=== PATIENT | male | born 1995 | race Two or more races ===

== ENCOUNTER 2021-08-16 22:49 | Inpatient (IN) | payer MEDICAID ==
[~2021-08-16] VITALS: Ht 160 cm; Wt 88.9 kg
[2021-08-16] MEDS ORDERED: PANTOPRAZOLE 40 MG VIAL IV ONE (23:30)
[2021-08-16] MEDS ORDERED: IV NS 0.9% 1,000 ML BAG IV ONE (23:30)
[2021-08-16] MEDS ORDERED: ONDANSETRON HCL/PF 4 MG/2 ML VIAL IVP ONE (23:30)
[2021-08-16] MEDS ORDERED: PANTOPRAZOLE 40 MG VIAL ONE (23:34)
[2021-08-16] MEDS ORDERED: ONDANSETRON HCL/PF 4 MG/2 ML VIAL ONE (23:34)
[2021-08-16 23:54] LABS: BASOPHILS % (AUTO) 0.2 % (0.0-2.0); HEMATOCRIT 44 % (39-51); HEMOGLOBIN 14.6 g/dL (13.5-17.5); LYMPHOCYTES # (AUTO) 0.4 K/uL (0.8-4.8); LYMPHOCYTES % (AUTO) 2.8 % (20.0-44.0); MEAN CORPUSCULAR HGB CONC 33 g/dl (31.0-36.0); MEAN CORPUSCULAR VOLUME 81 fL (80-96); MONOCYTES # (AUTO) 0.5 K/uL (0.1-1.30); MONOCYTES % (AUTO) 3.1 % (2.0-12.0); NEUTROPHILS # (AUTO) 13.9 K/uL (1.8-8.9); NEUTROPHILS % (AUTO) 93.9 % (43.0-81.0); PLATELET COUNT (AUTO) 353 K/uL (150-450); RED BLOOD CELL COUNT(AUTO) 5.41 MIL/uL (4.5-6.0); WHITE BLOOD COUNT (AUTO) 14.8 K/uL (4.3-11.0)
[2021-08-17] VITALS (7 sets, daily range): BP systolic 123–142; BP diastolic 75–86
[2021-08-17 00:20] LABS: ALBUMIN 4.6 g/dL (3.4-5.0); BILIRUBIN,DIRECT 0.3 mg/dL (0.0-0.2); CREATININE 0.9 mg/dL (0.6-1.3); POTASSIUM 3.7 mmol/L (3.5-5.1); TOTAL PROTEIN, SERUM 8.5 g/dL (6.4-8.2)
[2021-08-17] MEDS ORDERED: MAG HYDROX/AL HYDROX/SIMETH 30 ML UDC ONE (00:57)
[2021-08-17] MEDS ORDERED: DICYCLOMINE HCL 10 MG/5 ML UDC ONE (00:57)
[2021-08-17] MEDS ORDERED: LIDOCAINE VISCOUS 2% UD 15 ML UDC ONE (00:58)
[2021-08-17] MEDS ORDERED: LIDOCAINE VISCOUS 2% UD 15 ML UDC MM ONE (01:00)
[2021-08-17] MEDS ORDERED: DICYCLOMINE HCL 10 MG/5 ML UDC PO ONE (01:00)
[2021-08-17] MEDS ORDERED: MAG HYDROX/AL HYDROX/SIMETH 30 ML UDC PO ONE (01:00)
[2021-08-17] MEDS ORDERED: HYDROMORPHONE INJ 2 MG/ML DISP.SYRIN IV ONE (01:30)
[2021-08-17] MEDS ORDERED: HYDROMORPHONE 1 MG/1 ML DISP.SYRIN ONE (01:33)
[2021-08-17] MEDS ORDERED: IOHEXOL-300 100 ML VIAL IV ONE (01:46)
[2021-08-17] MEDS ORDERED: IV NS 0.9% 250 ML IV ONE (01:46)
[2021-08-17] MEDS ORDERED: ONDANSETRON HCL/PF 4 MG/2 ML VIAL IVP PRN (03:30)
[2021-08-17] MEDS ORDERED: ACETAMINOPHEN 325 MG TABLET PO PRN (03:30)
--- NOTE | 2021-08-17 04:32 | NUR ---
MS 207
[2021-08-17] MEDS ORDERED: ZOSYN IVPB 3.375 G in IV D5W 50ml IV ONE (05:00)
--- NOTE | 2021-08-17 05:12 | NUR ---
REPORT GIVEN TO KEANU BETHJERMAINE
--- NOTE | 2021-08-17 05:13 | NUR ---
TRANSFERRING PT TO 207
--- NOTE | 2021-08-17 05:15 | NUR ---
MS PRIMING POWDER PREMIX BLENDER NOTES RECEIVED NEW ADMIT FROM ER THIS 25 Y.O. MALE,,ALERT,ORIENTED X4,AMBULATORY WITH PRESENTING PROBLEM OF EPIGASTRIC PAIN SINCE 2 PM YESTERDAY,DIAGNOSIS OF ACUTE APPENDICITIS,TENDER ABDOMEN VERBALIZED BY PATIENT.WITH SALINE LOCK RIGHT ACD INTACT AND PATENT.CALL LIGHT IN REACH,NEEDS ANTICIPATED.
[2021-08-17] MEDS: IV NS 0.9% 1,000 ML IV PRN ×2 (05:30→18:31)
--- NOTE | 2021-08-17 05:30 | NUR ---
MS RN NOTES STARTED ON NS 1LITER AT 75ML/HR RATE ORDERED,INFUSING VIA IV PUMP
[2021-08-17] MEDS ORDERED: PIPERACILLIN /TAZOBACTAM 3.375 G VIAL IV ONE (05:31)
--- NOTE | 2021-08-17 05:32 | NUR ---
MS RN NOTES STARTED ON ZOSYN 3.375GM IVPB ONE TIME ORDER.
--- NOTE | 2021-08-17 06:38 | NUR ---
MS RN NOTES KEPT NPO ORDERED,DROPLET ISOLATION PRECUTION FOR POSITIVE PCR RESULT.WILL ENDORSE TO DAY NURSE FOR CARYN
--- NOTE | 2021-08-17 07:30 | NUR ---
MS RN OPENING NOTES RECEIVED PATIENT ON BED AWAKE AND A/O X4. ON ROOM AIR TOLERATING WELL. NO SOB NOTED. NOT IN DISTRESS. WITH NO COMPLAINTS OF PAIN OR DISCOMFORT AT THIS TIME. WITH IV ACCESS AT RIGHT AC G18 WITH IVF NS AT 75ML/HR INFUSING WELL. SAFETY MEASURES IN PLACED. CALL LIGHT WITHIN REACH. BED ON LOWEST LOCKED POSITION, SIDE RAILS UP X2. WILL CONTINUE TO MONITOR.
[2021-08-17] MEDS ORDERED: FENTANYL PF 100MCG/2ML AMPUL ONE (12:02)
[2021-08-17] MEDS ORDERED: DEXAMETHASONE SOD PHOSPHATE 4 MG/ML VIAL ONE (12:03)
[2021-08-17] MEDS ORDERED: MIDAZOLAM HCL 2 MG/2ML VIAL ONE (12:03)
[2021-08-17] MEDS ORDERED: BUPIVACAINE MPF W/EPI 0.25% 30 ML VIAL ONE (12:10)
[2021-08-17] MEDS: PIPERACILLIN /TAZOBACTAM 3.375 G in IV D5W 100 ML IV SCH ×2 (14:00→22:33)
--- NOTE | 2021-08-17 19:20 | NUR ---
MS RN CLOSING NOTES PATIENT ON BED RESTING AND A/O X4. ON ROOM AIR TOLERATING WELL. NO SOB NOTED. NOT IN DISTRESS. S/P APPENDECTOMY. WITH NO COMPLAINTS OF PAIN OR DISCOMFORT AT THIS TIME. WITH IV ACCESS AT RIGHT AC G18 WITH IVF NS AT 75ML/HR INFUSING WELL. DUE MEDS GIVEN. SAFETY MEASURES IN PLACED. CALL LIGHT WITHIN REACH. BED ON LOWEST LOCKED POSITION, SIDE RAILS UP X2. WILL ENDORSE TO NEXT SHIFT FOR CARYN.
--- NOTE | 2021-08-17 19:40 | NUR ---
RN NOTES RECEIVED PATIENT AWAKE ON HIS BED, A/OX4, AMBULATORY, S/P APPENDECTOMY, DRESSING DRY AND INTACT, DENIES PAIN, NO SOB CALL LIGHT WITHIN REACH, [id number], WILL CONTINUE TO MONITOR
[2021-08-17] MEDS: HYDROMORPHONE INJ 2 MG/ML DISP.SYRIN IV PRN (22:52)
--- NOTE | 2021-08-17 23:00 | NUR ---
RN NOTES COMPLAINED ABDOMINAL PAIN (S/P APPENDECTOMY) DILAUDID 2 MG IV GIVEN ORDERED, V/S STABLE
[2021-08-18] MEDS: IV NS 0.9% 1,000 ML IV PRN (02:48)
[2021-08-18] MEDS: PIPERACILLIN /TAZOBACTAM 3.375 G in IV D5W 100 ML IV SCH ×2 (06:28→13:01)
--- NOTE | 2021-08-18 06:48 | NUR ---
RN NOTES SLEEPING BUT AROUSABLE, NO PAIN NOTED, NO SOB, CALL LIGHT WITHIN REACH, [id number], MORNING CARE RENDERED, PT. NEEDS ATTENDED
--- NOTE | 2021-08-18 07:31 | NUR ---
MS RN OPENING NOTES RECEIVED PATIENT ON BED AWAKE AND A/O X4. BREATHING EVENLY AND NONLABORED ON ROOM AIR TOLERATING WELL. NO SOB NOTED. NOT IN DISTRESS. WITH NO COMPLAINTS OF PAIN OR DISCOMFORT AT THIS TIME. WITH IV ACCESS AT RIGHT AC G18 WITH IVF NS AT 75ML/HR INFUSING WELL. SAFETY MEASURES IN PLACED. CALL LIGHT WITHIN REACH. BED ON LOWEST LOCKED POSITION, SIDE RAILS UP X2. WILL CONTINUE TO MONITOR.
[2021-08-18] MEDS: HYDROMORPHONE INJ 2 MG/ML DISP.SYRIN IV PRN (07:37)
[2021-08-18 07:51] VITALS: BP 105/76
[2021-08-18 08:23] LABS: BASOPHILS % (AUTO) 0.2 % (0.0-2.0); HEMATOCRIT 40 % (39-51); HEMOGLOBIN 13.2 g/dL (13.5-17.5); LYMPHOCYTES # (AUTO) 1.7 K/uL (0.8-4.8); LYMPHOCYTES % (AUTO) 14.8 % (20.0-44.0); MEAN CORPUSCULAR HGB CONC 33 g/dl (31.0-36.0); MEAN CORPUSCULAR VOLUME 81 fL (80-96); MONOCYTES # (AUTO) 1.6 K/uL (0.1-1.30); MONOCYTES % (AUTO) 13.8 % (2.0-12.0); NEUTROPHILS # (AUTO) 8.1 K/uL (1.8-8.9); NEUTROPHILS % (AUTO) 71.2 % (43.0-81.0); PLATELET COUNT (AUTO) 331 K/uL (150-450); RED BLOOD CELL COUNT(AUTO) 4.94 MIL/uL (4.5-6.0); WHITE BLOOD COUNT (AUTO) 11.3 K/uL (4.3-11.0)
[2021-08-18 08:45] LABS: ALBUMIN 3.5 g/dL (3.4-5.0); BILIRUBIN,DIRECT 0.2 mg/dL (0.0-0.2); BILIRUBIN,TOTAL 0.8 mg/dL (0.2-1.0); CALCIUM, SERUM 8.2 mg/dL (8.5-10.1); CREATININE 0.9 mg/dL (0.6-1.3); PHOSPHORUS 3.4 mg/dL (2.5-4.9); POTASSIUM 3.8 mmol/L (3.5-5.1); TOTAL PROTEIN, SERUM 7.3 g/dL (6.4-8.2)
[2021-08-18 13:18] VITALS: BP 122/70
--- NOTE | 2021-08-18 14:46 | NUR ---
RN NOTE MD GAVE NEW ORDER FOR DISCHARGE, GAVE WRITTEN PRESCRIPTIONS
--- NOTE | 2021-08-18 15:40 | NUR ---
REPAIRER SHOE STICKS NOTE RECEIVED ORDER FOR DISCHARGE FROM DR ROTH AFTER SURGICAL CLEARANCE. PATIENT IS BREATHING EVENLY AND NONLABORED ON ROOM AIR. NO SIGNS OF DISTRESS NOTED. DENIES PAIN OR DISCOMFORT AT THIS TIME. PATIENT WAS GIVEN DISCHARGE INSTRUCTIONS BOTH VERBALLY AND IN WRITTEN FORM. PATIENT AND FAMILY VERBALIZED UNDERSTANDING. PATIENT WAS GIVEN WRITTEN PRESCRIPTION AND DR CHRISTENSEN INFORMATION. PATIENT VERBALIZED UNDERSTANDING. IV ACCESS WAS REMOVED PRESSURE DRESSING APPLIED NO BLEEDING NOTED. CATHETER TIP INTACT. ALL BELONGINGS TAKEN WITH PATIENT, BELONGINGS FORM SIGNED. PATIENT LEFT IN STABLE CONDITION VIA PRIVATE CAR WITH MOTHER.
== END 2021-08-18 15:46 | disposition home or self-care (01) | DRG 234 ==
LOC: ER 22:53 → MEDSG2 08-17 04:38
PROVIDERS: ADMIT Student in an Organized Health Care Education/Training Program; ATTEND Student in an Organized Health Care Education/Training Program
PROC: 0DTJ4ZZ Resection of Appendix, Percutaneous Endoscopic Approach (ICD-10-PCS; principal; 2021-08-17)
DX: K35.30 Acute appendicitis with localized peritonitis, without perforation or gangrene (principal); U07.1 COVID-19; K76.0 Fatty (change of) liver, not elsewhere classified; R74.01 Elevation of levels of liver transaminase levels
CPT/HCPCS: 36415; 76705-TC; 80048-TC; 80061-TC; 80076-TC; 83690-TC; 83735-TC; 84100-TC; 85025-TC; 86850-TC; 87070-TC; 87081-TC; 87186-TC; 88304-TC; C9113; C9803; G0378; J0330; J1100; J1170; J2250; J2405; J2543; J2704; J3010; J3490; J7030; J7050; J7060; Q9967